=== PATIENT | female | born 1970 | race Caucasian/White ===

== ENCOUNTER 2016-09-02 13:06 | Observation (INO) | payer OTHER ==
[~2016-09-02] VITALS: Ht 170.2 cm; Wt 113.0 kg
[~2016-09-02 13:06] MED LIST: Ambien PO; BENICAR20 MG PO; Desyrel PO; ENDOCET 5-3251 EACH PO; Effexor XR PO; Hydrodiuril,Oretic,E PO; Lopressor PO; Nucynta PO; OxyCONTIN PO; PriLOSEC PO; ZANAFLEX4 M1 PO
[2016-09-02 13:21] LABS: EOSINOPHIL (%) 0.1 % (0-5); IMMATURE GRANULOCYTE (%) 0.3 % (0.0-0.7); INSTRUMENT ABS NEUTROPHIL CT 3.8 K/uL; LYMPHOCYTE COUNT 3.3 K/uL (1.0-2.8); MCH 28.5 PG (29.0-34.0); MCHC 31.5 G/DL (30.0-36.0); MCV 90.7 FL (83-99); MEAN PLAT.VOLUME 9.7 uM^3 (9.5-12.4); MONOCYTE COUNT 0.5 K/uL (0-0.8); NEUTROPHIL (%) 49.8 % (45-76); NEUTROPHIL COUNT 3.8 K/uL (1.8-6.4); PLATELET COUNT 314 K/uL (156-360); RBC DIS.WIDTH-CV 13.8 % (11.8-14.6); RBC DIS.WIDTH-SD 45.1 % (39-53); RED BLOOD COUNT 4.52 M/uL (3.80-5.20); WHITE BLOOD COUNT 7.6 K/uL (4.1-10.2)
[2016-09-02 13:28] LABS: AMYLASE 32 IU/L (1-118); CHLORIDE 99 mEq/L (99-109); POTASSIUM 3.2 mEq/L (3.7-5.4); SODIUM 141 mEq/L (136-147)
[2016-09-02 13:30] LABS: GLUCOSE 112 mg/dL (70-99)
[2016-09-02 13:31] LABS: ANION GAP 13 MEQ/L (2-14)
[2016-09-02 13:33] LABS: SERUM ETHYL ALCOHOL < 10 mg/dL
[2016-09-02 13:34] LABS: GFR ESTIMATE (CALCULATED) 57 mL/min/
[2016-09-02 13:35] LABS: UREA NITROGEN (BUN) 21 mg/dL (9-23)
[2016-09-02 13:36] LABS: PROTHROMBIN TIME 10.1 (9.2-11.2); PTT 29.9 (25-32)
[2016-09-02 13:37] LABS: LIPASE 31 U/L (1.0-51.0)
[2016-09-02 13:40] LABS: POINT-OF-CARE METER ID UU14100415
[2016-09-02 13:42] LABS: TROP-I INTERPRETATION NEGATIVE; TROPONIN-I < 0.01 ng/mL (0.0-0.30)
[2016-09-02 13:43] LABS: QUANTITATIVE HCG < 4.0 MIU/ML
[2016-09-02 13:59] LABS: ADD MIUA? NO; BILIRUBIN NEGATIVE; BLOOD NEGATIVE; COLOR YELLOW ((YELLOW)); GLUCOSE (STRIP) NEGATIVE; KETONES NEGATIVE; LEUKOCYTES NEGATIVE; NITRITE NEGATIVE; PROTEIN (STRIP) NEGATIVE; SPECIFIC GRAVITY 1.023 (1.000-1.030); UCUL ADDED? NO; UROBILINOGEN 0.2 MG/DL (0.2-1.0)
[2016-09-02 14:31] LABS: ADD MEDTOX COMMENT Y; AMPHETAMINE NEGATIVE (500 ng/mL); BARBITURATES NEGATIVE (200 ng/mL); BENZODIAZEPINES PRESUMPTIVE POSITIVE (150 ng/mL); COCAINE NEGATIVE (150 ng/mL); INTERNAL CONTROLS VALID? YES; METHADONE NEGATIVE (200 ng/mL); METHAMPHETAMINE NEGATIVE (500 ng/mL); OPIATES (MORPHINE) PRESUMPTIVE POSITIVE (100 ng/mL); OXYCODONE PRESUMPTIVE POSITIVE (100 ng/mL); PHENCYCLIDINE NEGATIVE (25 ng/mL); PROPOXYPHENE NEGATIVE (300 ng/mL); THC CANNABINOIDS NEGATIVE (50 ng/mL); TRICYCLIC ANTIDEPRESSANTS NEGATIVE (300 ng/mL)
[2016-09-02 15:08] LABS: BENZODIAZEPINES QUANT VALUE 0 NG/ML
[2016-09-02 15:10] LABS: BENZODIAZEPINES, URINE SCREEN Negative (200 ng/mL)
[2016-09-02] MEDS ORDERED: AMBIEN10 MG PO (16:15)
[2016-09-02] MEDS ORDERED: DETROL LA4 MG PO (16:15)
[2016-09-02] MEDS ORDERED: HYDROCHLOROTHIA25 MG PO (16:15)
[2016-09-02] MEDS ORDERED: LOPRESSOR50 MG PO (16:15)
[2016-09-02] MEDS ORDERED: MAXALT10 MG PO (16:16)
[2016-09-02] MEDS ORDERED: BACTRIM,SEPT1 TABLET PO (16:16)
[2016-09-02] MEDS ORDERED: HYDROCODON-ACE1 EAC8 PO (16:16)
[2016-09-02] MEDS ORDERED: IBUPROFEN800 MG PO (16:16)
[2016-09-02] MEDS ORDERED: KLOR-CON M2020 MEQ PO (16:16)
[2016-09-02] MEDS ORDERED: CLONAZEPAM2 MG PO (16:16)
[2016-09-02] MEDS ORDERED: CITALOPRAM HBR40 MG PO (16:17)
[2016-09-02] MEDS ORDERED: COLACE100 MG PO (16:17)
[2016-09-02] MEDS ORDERED: AMLODIPINE BESYL5 MG PO (16:17)
[2016-09-02 17:34] LABS: HDL CHOLESTEROL 43 MG/DL (Desirable>=50); LDL CHOLESTEROL 127 mg/dL (Desirable<100); NON-HDL CHOLESTEROL 172 mg/dL (Desirable<160); TOTAL CHOLESTEROL 215 mg/dL (Desirable<200); TRIGLYCERIDES 226 MG/DL (Normal: <150)
[2016-09-02 18:36] VITALS: BP 119/84
[2016-09-02 19:24] LABS: Estimated Average Glucose 131 mg/dL (70-123); HEMOGLOBIN A1c (GLYCOHEMOGLOB) 6.2 % HGB (Below 5.7)
[2016-09-03 00:08] VITALS: BP 145/69
[2016-09-03 03:52] VITALS: BP 110/59
[2016-09-03 05:36] LABS: HEMATOCRIT 36.3 % (36.0-46.0); MCH 28.6 PG (29.0-34.0); MCV 89.6 FL (83-99); MEAN PLAT.VOLUME 10.5 uM^3 (9.5-12.4); PLATELET COUNT 245 K/uL (156-360); RBC DIS.WIDTH-CV 13.6 % (11.8-14.6); RBC DIS.WIDTH-SD 44.1 % (39-53); RED BLOOD COUNT 4.05 M/uL (3.80-5.20); WHITE BLOOD COUNT 6.3 K/uL (4.1-10.2)
[2016-09-03 06:05] LABS: ALKALINE PHOSPHATASE 76 IU/L (3-129); ANION GAP 8 MEQ/L (2-14); CHLORIDE 101 MEQ/L (99-109); GFR ESTIMATE (CALCULATED) > 59 mL/min/; GLUCOSE 88 mg/dL (70-99); POTASSIUM 2.9 MEQ/L (3.7-5.4); SAMPLE HEMOLYSIS CHECK 0; SAMPLE ICTERIC CHECK 0; SAMPLE LIPEMIA CHECK 0; SODIUM 142 MEQ/L (136-147); TOTAL BILIRUBIN 0.3 MG/DL (0.0-1.0); UREA NITROGEN (BUN) 20 mg/dL (9-23)
[2016-09-03 07:56] VITALS: BP 112/75
[2016-09-03 11:38] VITALS: BP 109/73
== END 2016-09-03 12:57 | disposition home or self-care (01) ==
LOC: EME 13:06 → 5WEST 14:50 → EDOF 14:50 → 5WEST 18:25
PROVIDERS: Emergency Medicine; Nurse Practitioner Adult Health
DX: R47.81 Slurred speech (principal); E87.6 Hypokalemia; T50.2X5A Adverse effect of carbonic-anhydrase inhibitors, benzothiadiazides and other diuretics, initial encounter; I10 Essential (primary) hypertension; G43.909 Migraine, unspecified, not intractable, without status migrainosus; F32.9 Major depressive disorder, single episode, unspecified; F17.200 Nicotine dependence, unspecified, uncomplicated; E66.9 Obesity, unspecified; Z68.39 Body mass index [BMI] 39.0-39.9, adult
CPT/HCPCS: 70450; 70551; 80048; 80053; 80061; 81003; 82150; 82948; 83036; 83690; 84484; 84702; 84999; 85025; 85027; 85610; 85730; 86850; 86900; 86901; 93005; 93880; 99281; 99285; G0378; G0480